=== PATIENT | female | born 1965 | race Caucasian/White ===

== ENCOUNTER 2017-08-10 16:15 | Inpatient (IN) | payer OTHER ==
[2017-08-26] MEDS ORDERED: Fentanyl 100 MCG/2 ML VIAL ONE ×2 (06:30→08:50)
[2017-08-26] MEDS ORDERED: Midazolam HCl 2 mg/2 ml Vial ONE (06:30)
[2017-08-26] MEDS ORDERED: Bupivacaine HCl 0.5%/Epinephrine 1:200,000/PF 30 ml Vial ONE (06:35)
[2017-08-26] MEDS ORDERED: Heparin 5,000 UNITS/ML VIAL ONE (06:38)
[2017-08-26] MEDS ORDERED: Propofol 200 MG/20 ML VIAL ONE (07:38)
[2017-08-26] MEDS ORDERED: Glycopyrrolate 0.2 MG/ML 5 ML SYRINGE ONE (07:38)
[2017-08-26] MEDS ORDERED: Ondansetron HCl/PF 4 MG/2 ML Vial ONE (07:38)
[2017-08-26] MEDS ORDERED: Lidocaine 2% PF 10 ML AMP (For Epidural Use) ONE (07:38)
[2017-08-26] MEDS ORDERED: Dexamethasone 20 MG/5 ML VIAL ONE (07:38)
[2017-08-26] MEDS ORDERED: ePHEDrine/0.9% NaCl/PF SYRINGE 50 mg/10 ml ONE (07:38)
[2017-08-26] MEDS ORDERED: PHENYLEPHRINE-NS 100 MCG/ML 10 ML SYRINGE ONE (07:38)
--- NOTE | 2017-08-26 07:46 | HP ---
CHIEF COMPLAINT: Morbid obesity. HISTORY: The patient is a 51-year-old female who has been overweight for many years and attempted m ultiple weight loss efforts without success. She is here for sleeve gastrectomy. PAST MEDICAL HISTORY: Hypertension, right ulnar neuropathy, depression. She has had a left eye per ipheral hemorrhage, plantar fasciitis. PAST SURGICAL HISTORY: None. ALLERGIES: No known drug allergies. SOCIAL HISTORY: She is a nonsmoker, no alcohol. She is . FAMILY HISTORY: Alcohol abuse, suicide, depression. PHYSICAL EXAMINATION: VITAL SIGNS: Height 5 foot 6, weight 276, body mass index 44.5. Blood pressure 103/66, pulse 83. GENERAL: Well-developed, well-nourished female in no apparent distress. HEENT: Unremarkable. LUNGS: Clear. HEART: Regular rate and rhythm. ABDOMEN: Soft, nondistended, nontender, good bowel sounds, no palpable masses or hernias. EXTREMITIES: Good pulses. No pedal edema. ASSESSMENT: Morbid obesity with comorbidities. PLAN: Laparoscopic sleeve gastrectomy. CONSENT: I have discussed the planned procedure as well as risk of bleeding, infection, injury to e sophagus, spleen, loops of bowel, need to open. She understands and gives informed consent.
[2017-08-26] MEDS ORDERED: Dextrose 50% Abboject 50 ML SYRINGE SLOW IVP PRN (08:29)
[2017-08-26] MEDS ORDERED: Promethazine HCl 25 MG/ML VIAL IM PRN ×2 (08:29→08:46)
[2017-08-26] MEDS ORDERED: Dextrose 5% in Water 1,000 ML IV PRN (08:29)
[2017-08-26] MEDS ORDERED: diphenhydrAMINE HCl 50 MG/ML 1 ML VIAL IVP PRN ×2 (08:29→09:30)
[2017-08-26] MEDS ORDERED: Hydrocodone-Acetamin 15 ML UDCUP PO PRN (08:29)
[2017-08-26] MEDS ORDERED: Ondansetron HCl/PF 4 MG/2 ML Vial IVP PRN ×3 (08:29→09:30)
[2017-08-26] MEDS ORDERED: Promethazine HCl 25 MG/ML VIAL SLOW IVP PRN (08:46)
--- NOTE | 2017-08-26 08:46 | OP ---
DATE OF PROCEDURE: 08/26/2017 PREOPERATIVE DIAGNOSIS: Morbid obesity. SURGEON: Indra Ayala M.D. PROCEDURE: Laparoscopic sleeve gastrectomy, intraoperative esophagogastroscopy, INDICATIONS: This is a 51-year-old female, morbidly obese, who has attempted multiple weight loss p rograms without success. FINDINGS: A 38 Mauritian bougie used. PROCEDURE IN DETAIL: After informed consent was obtained, the patient was taken to the operating ro om and given general endotracheal anesthesia. She was placed in the supine position. The abdomen w as prepped and draped in the usual fashion. Local anesthesia infiltrated subcutaneously and deep. A 12 mm incision was performed approximately 8 inches below the xiphoid slightly to the left. Veres s needle inserted. Drop test performed. Pneumoperitoneum was created to a volume of 2 liters of ca rbon dioxide. Utilizing a bladeless 12 mm trocar and 0 degree laparoscope direct visual entry in th e abdominal cavity was performed. Pneumoperitoneum was created to a pressure of 15 mmHg. The patie nt placed in steep reverse Trendelenburg position. Nathansen liver retractor inserted. Left lobe o f liver retracted superiorly. The pylorus identified. A 12 mm port placed on the right beneath it and two 12s placed left subcostal. The omentum was taken off the greater curvature 5 cm from the py lorus utilizing the LigaSure. Short gastrics divided with the LigaSure. Left crura defined with th e LigaSure. A 38-Mauritian bougie inserted directed into the antrum. The linear 60 mm green load stap ler used to divide the antrum to the bougie, gold load along the bougie, and a series of blues throu gh the angle of His. Intraoperative endoscopy was performed. The video endoscope inserted under di rect vision. The staple line inspected. There was no bleeding. Staple line then tested by inflati ng the new stomach with pressurized air under water. There was no air leak. Stomach decompressed. Scope removed. Remnant stomach removed from the abdomen through the left lateral port site. The f ascia closed with 0 Vicryl suture and a GraNee needle. Skin closed with interrupted 4-0 Rapide. De rmabond applied. The patient tolerated the procedure well and transferred to recovery in good condi tion. Sponge and needle count verified correct x2.
[2017-08-26] MEDS ORDERED: Fentanyl 20 MCG/ML 250 ML ONE (09:13)
[2017-08-26] MEDS ORDERED: Naloxone HCl 0.4 mg/ml Vial IV PRN (09:30)
[2017-08-26] MEDS ORDERED: diphenhydrAMINE HCl 50 MG/ML 1 ML VIAL IM PRN (09:30)
[2017-08-26] MEDS ORDERED: Zolpidem Tartrate 5 MG TAB PO PRN (09:30)
[2017-08-26] MEDS ORDERED: Communication Order-Pharmacy FS SCH (09:30)
[2017-08-26] MEDS ORDERED: Fentanyl 5000 MCG/250 ML CADD IVPB PRN (09:30)
[2017-08-26] MEDS ORDERED: diphenhydrAMINE HCl 25 MG CAP PO PRN (09:30)
[2017-08-26] MEDS: Pantoprazole 40 MG VIAL IVP SCH (10:15)
[2017-08-26 10:37] VITALS: BMI 41.8
[2017-08-26] MEDS: Ketorolac Tromethamine 30 MG/ML VIAL IVP SCH ×3 (11:29→23:09)
[2017-08-26] MEDS: D5 1/2 NS w/20 mEq KCL 1,000 ML IV SCH ×2 (11:29→18:40)
[2017-08-26] MEDS: Enoxaparin Sodium 40 MG/0.4 ML SYRINGE SC SCH (11:33)
[2017-08-26] MEDS ORDERED: Sodium Chloride 0.9% 500 ML IV SCH (13:45)
[2017-08-26] MEDS ORDERED: Morphine CADD 1 MG/ML CADD IV PRN (14:40)
[2017-08-27] MEDS: D5 1/2 NS w/20 mEq KCL 1,000 ML IV SCH ×2 (04:45→12:11)
[2017-08-27] MEDS: Ketorolac Tromethamine 30 MG/ML VIAL IVP SCH ×2 (05:08→12:19)
[2017-08-27 05:19] LABS: #Lymphocytes 1.3 thou/uL (1.20-3.40); #Monocytes 0.8 thou/uL (0.11-0.59); #Neutrophils 7.6 thou/uL (1.40-6.50); %Basophils 0.2 % (0.0-1.0); %Eosinophils 0.2 % (0.0-10.0); %Lymphocytes 12.9 % (21.0-51.0); %Monocytes 8.6 % (0.0-10.0); Mean Platelet Volume 8.6 fL (7.4-10.4); White Blood Cell (WBC) Count 9.7 thou/uL (4.8-10.8)
[2017-08-27 05:36] LABS: Anion Gap 11 mmol/L (10-20); BUN (Urea Nitrogen) 8 mg/dL (7.0-18.7); Calc. Creatinine Clearance 120 mL/min (70-130); Calcium 9.2 mg/dL (7.8-10.44); Carbon Dioxide 28 mmol/L (22-29); Chloride 106 mmol/L (98-107); Estimated GFR-MDRD 56
--- NOTE | 2017-08-27 08:12 | RAD ---
LIMITED UPPER GI WITH 15 ML GASTROGRAFIN: HISTORY: Status post bariatric surgery, vertical sleeve gastrectomy. FINDINGS/IMPRESSION: There is passage of contrast through the esophagus into the gastric remnant. A small hiatal hernia is seen. There is residual contrast noted in the esophagus. No contrast extravasation is seen. Ter tiary contractions are noted. POS: [facility]
[2017-08-27] MEDS ORDERED: Hydrocodone-Acetamin 15 ML UDCUP PO PRN (08:28)
[2017-08-27] MEDS: Enoxaparin Sodium 40 MG/0.4 ML SYRINGE SC SCH (08:51)
[2017-08-27] MEDS: Pantoprazole 40 MG VIAL IVP SCH (08:53)
[2017-08-27 12:23] VITALS: BP 110/71; TEMP 98.7
[2017-08-27] MEDS ORDERED: GASTROGRAFIN 30 ML BOT ONE (14:30)
--- NOTE | 2017-08-27 20:58 | DIS ---
DISCHARGE DIAGNOSIS: Morbid obesity. PROCEDURES DURING ADMISSION: Laparoscopic sleeve gastrectomy, intraoperative esophagogastroscopy, p ostoperative Gastrografin swallow. HOSPITAL COURSE: The patient was admitted, taken to the operating room where she underwent sleeve g astrectomy. Postoperatively, she is doing well. She is tolerating liquids well. She is discharged home in good condition on hydrocodone and Zofran. She will follow up with me in 2 weeks.
== END 2017-08-27 15:20 | disposition home or self-care (01) | DRG 621 ==
LOC: SURG A 08-26 06:11
PROVIDERS: ADMIT Surgery; ATTEND Surgery
PROC: 0DB64Z3 Excision of Stomach, Percutaneous Endoscopic Approach, Vertical (ICD-10-PCS; principal; 2017-08-26)
PROC: 0DJ68ZZ Inspection of Stomach, Via Natural or Artificial Opening Endoscopic (ICD-10-PCS; 2017-08-26)
DX: E66.01 Morbid (severe) obesity due to excess calories (principal); I10 Essential (primary) hypertension; Z68.41 Body mass index [BMI] 40.0-44.9, adult; F41.9 Anxiety disorder, unspecified; F32.9 Major depressive disorder, single episode, unspecified
CPT/HCPCS: 36415; 74241; 80048; 85025; 88307; 88312; 94760; C9113; J0670; J1100; J1200; J1644; J1885; J2001; J2250; J2270; J2274; J2405; J2704; J3010

== ENCOUNTER 2017-09-12 00:26 | Inpatient (IN) | payer OTHER ==
[2017-09-12 01:03] LABS: #Eosinphils 0.1 thou/uL (0.0-0.7); #Lymphocytes 1.9 thou/uL (1.20-3.40); #Monocytes 0.8 thou/uL (0.11-0.59); #Neutrophils 3.4 thou/uL (1.40-6.50); %Basophils 0.8 % (0.0-1.0); %Eosinophils 2.3 % (0.0-10.0); %Lymphocytes 29.6 % (21.0-51.0); %Monocytes 13.3 % (0.0-10.0); Mean Platelet Volume 10.1 fL (7.4-10.4); Red Blood Cell (RBC) Count 5.04 mill/uL (4.20-5.40); White Blood Cell (WBC) Count 6.3 thou/uL (4.8-10.8)
[2017-09-12] MEDS ORDERED: Ondansetron HCl/PF 4 MG/2 ML Vial ONE (01:11)
[2017-09-12 01:22] LABS: Lactic Acid - Sepsis 1.2 mmol/L (0.5-2.2)
[2017-09-12 01:28] LABS: ALT (SGPT) 17 U/L (8-55); AST (SGOT) 23 U/L (5-34); Alkaline Phosphatase 57 U/L (40-150); Anion Gap 14 mmol/L (10-20); BUN (Urea Nitrogen) 34 mg/dL (7.0-18.7); Calc. Creatinine Clearance 0 mL/min (70-130); Calcium 10.1 mg/dL (7.8-10.44); Carbon Dioxide 28 mmol/L (22-29); Chloride 98 mmol/L (98-107); Estimated GFR-MDRD 27; Globulin 3.4 g/dL (2.4-3.5); Lipase 72 U/L (8-78); Protein, Total 7.7 g/dL (6.0-8.3)
[2017-09-12] MEDS ORDERED: Potassium Chloride 20 MEQ TAB ONE (02:20)
[2017-09-12 03:11] LABS: Magnesium 2.3 mg/dL (1.6-2.6); Phosphorus 4.3 mg/dL (2.3-4.7)
[2017-09-12] MEDS ORDERED: Ondansetron HCl/PF 4 MG/2 ML Vial IVP PRN ×2 (03:48→04:14)
[2017-09-12] MEDS ORDERED: Ondansetron ODT 4 MG TAB SL PRN (03:48)
[2017-09-12 03:58] VITALS: BMI 38.7
[2017-09-12] MEDS ORDERED: NS 0.9% w/ 20 MEQ KCL 1,000 ML IV SCH (04:00)
[2017-09-12] MEDS ORDERED: Ondansetron ODT 4 MG TAB PO PRN (04:14)
[2017-09-12] MEDS ORDERED: Acetaminophen 325 MG TAB PO PRN (04:14)
[2017-09-12] MEDS ORDERED: Hydrocerin (Eucerin) Cream 120 gm Jar TOP PRN (04:16)
[2017-09-12] MEDS ORDERED: Loratadine 10 MG TAB PO PRN (04:17)
[2017-09-12] MEDS ORDERED: Calcium Carbonate 500 MG ChewTAB PO PRN (04:17)
--- NOTE | 2017-09-12 05:00 | HP ---
DATE OF ADMISSION: 09/12/2017 PRIMARY CARE PHYSICIAN: Sharad Brown M.D. CHIEF COMPLAINT: Abdominal discomfort. PRIMARY GENERAL SURGEON: Dr. Ayala. HISTORY OF PRESENT ILLNESS: Patient is a 51-year-old female with morbid obesity with recent laparos copic sleeve gastrectomy presented to the emergency room with above complaints. Postsurgery, the patient felt fine until 4 days ago when she started having nausea with some abdomin al discomfort that got worse over the last 2 days. She denies any vomiting. Taking liquid hydrocod one was making her nausea worse. For this reason, she discontinued taking [place] over the last 1-2 d ays. The abdominal pain was generalized, mainly over the incision site. She also felt bloated. Sh e denies any diarrhea, constipation, hematemesis, melena, or hematochezia. No fevers or chills repo rted. She denies any recent immobilization, shortness of breath. She has been ambulating and is st ill using incentive spirometry regularly. In the emergency room, her initial vitals signs showed temperature 97.9 with respirations of 18, pul se rate of 66, blood pressure of 91/61 with O2 saturation 100% on room air. Her labs were consisten t with acute kidney injury with creatinine 1.99 with BUN 34, and potassium of 3.1. She was started on IV fluids. Her EKG showed sinus rhythm without significant ST-T wave changes. She also received potassium chloride 40 mEq p.o. along with morphine and Zofran in the emergency room. PAST MEDICAL HISTORY: 1. Obesity with a BMI of 38.8. 2. Hypertension. 3. Depression. 4. Right ulnar neuropathy. PAST SURGICAL HISTORY: Recent sleeve gastrectomy. ALLERGIES: Patient denies any drug allergies. CURRENT HOME MEDICATIONS: The patient takes Benicar HCT 20/12.5 daily. She is unable to recall oth er vitamins. FAMILY HISTORY: Mother with depression. Heart disease runs in her family. SOCIAL HISTORY: She is a teacher in elementary school. She denies any history of smoking, alcohol, or drug use. She is . REVIEW OF SYSTEMS: The following complete review of systems was negative, unless otherwise mentione d in the HPI or below: Constitutional: Weight loss or gain, ability to conduct usual activities. Skin: Rash, itching. Eyes: Double vision, pain. ENT/Mouth: Nose bleeding, neck stiffness, pain, tenderness. Cardiovascular: Palpitations, dyspnea on exertion, orthopnea. Respiratory: Shortnes s of breath, wheezing, cough, hemoptysis, fever or night sweats. Gastrointestinal: Poor appetite, abdominal pain, heartburn, nausea, vomiting, constipation, or diarrhea. Genitourinary: Urgency, fr equency, dysuria, nocturia. Musculoskeletal: Pain, swelling. Neurologic/Psychiatric: Anxiety, de pression. Allergy/Immunologic: Skin rash, bleeding tendency. PHYSICAL EXAMINATION: VITAL SIGNS: As discussed above. GENERAL: A 51-year-old female in mild distress due to abdominal discomfort. HEENT: Head: Atraumatic, normocephalic. Sclerae are anicteric. Moist mucous membranes. No oral lesion. NECK: Supple, no JVD, no carotid bruit. LUNGS: Clear to auscultation bilaterally. HEART: S1, S2 present. Regular rate and rhythm. No murmurs, rubs, or gallops. ABDOMEN: Soft, mild generalized tenderness. Incisions appear well healed. No costovertebral angle tenderness. No rebound or guarding. EXTREMITIES: No edema or calf tenderness. NEUROLOGIC: Grossly nonfocal, moves all four extremities. PSYCHIATRY: Alert, awake, oriented x3. SKIN: Warm and dry. LYMPH NODES: No palpable lymph nodes in the neck. PERIPHERAL VASCULAR: Radial pulses palpable bilaterally. MUSCULOSKELETAL: No joint swelling or tenderness. LABORATORY FINDINGS: As discussed above. Lactic acid, magnesium, phosphorus in normal range. Sodi um was 137. LFTs in normal range. CBC showed WBC 6.3 with hemoglobin 14.5. Chest x-ray by my review was negative for infiltrate. EKG as discussed above. IMPRESSION: 1. Acute kidney injury secondary to prerenal etiology. Patient has been persistently nauseous over the last 4-5 days. She also takes Benicar HCT on a daily basis. She will be started on IV fluids. She denies any obstructive urinary symptoms. We will recheck labs after 24 hours. We will consid er renal ultrasound if renal function does not improve. Benicar HCT will be on hold. 2. Hypotension, probably secondary to #1. We will continue IV fluids. 3. Abdominal discomfort with recent sleeve gastrectomy. The patient feels bloated with some abdomi nal distention. We will consult General Surgery, Dr. Ayala. 4. Obesity with a BMI 38.8, status post recent sleeve gastrectomy. 5. Chronic kidney disease stage 2. 6. Hypokalemia, probably secondary to poor oral intake. 7. Hypertension. Plan as discussed above. Plan of care was discussed with the patient. She stated understanding. The patient will require at least 2 days for stabilization.
[2017-09-12] MEDS: Sodium Chloride 0.9% 1,000 ML IV SCH ×3 (05:04→16:46)
[2017-09-12] MEDS ORDERED: Morphine Sulfate 2 MG/ML SYRINGE SLOW IVP PRN (08:01)
--- NOTE | 2017-09-12 08:22 | RAD ---
SINGLE VIEW OF CHEST: Date: 09/12/17 COMPARISON: 04/05/12. HISTORY: Bariatric surgery 16 days ago with abdominal pain and cramping. FINDINGS: Single view of the chest shows a normal sized cardiomediastinal silhouette. There is no evidence of consolidation, mass, or pleural effusion. The bones are unremarkable. IMPRESSION: No evidence of acute cardiopulmonary disease. POS: [facility]
[2017-09-12] MEDS ORDERED: Pantoprazole 40 MG VIAL IVP SCH (09:00)
[2017-09-12] MEDS ORDERED: FLU VACC QS2017-18 36 mo. & older 0.5 ML SYRINGE IM ONE (09:00)
--- NOTE | 2017-09-12 13:38 | PDOC.PN ---
- Subjective Encounter Start Date: 09/12/17 Encounter Start Time: 10:45 Subjective: abdominal pain is better, is mostly at the incision sites -: no nausea, she feels like her abd is distented and feels heavy in lower [place] -: admits to not hydrating well for 36hrs, she would come home & sleep off - Objective Resuscitation Status: Resuscitation Status FULL:Full Resuscitation MAR Reviewed: Yes Vital Signs & Weight: Vital Signs (12 hours) Temp Pulse Resp BP BP BP Pulse Ox 09/12/17 11:02 97.6 F 74 16 135/71 108/75 100/58 L 97 09/12/17 08:00 98.2 F 73 16 100 09/12/17 07:32 98.2 F 73 16 113/66 100 09/12/17 04:49 97.7 F 79 20 09/12/17 04:19 99 09/12/17 03:58 97.7 F 79 20 91/55 L 99 Weight Weight 240 lb 6 oz I&O: 09/11/17 09/12/17 09/13/17 06:59 06:59 06:59 Intake Total 525 Balance 525 Result Diagrams: 09/12/17 00:45 09/12/17 00:45 Phys Exam - Physical Examination HEENT: PERRLA, moist MMs Neck: no JVD, supple Respiratory: no wheezing, no rales Cardiovascular: RRR, no significant murmur Gastrointestinal: soft, positive bowel sounds Musculoskeletal: no edema, pulses present Neurological: non-focal, moves all 4 limbs Dx/Plan (1) Abdominal pain Code(s): R10.9 - UNSPECIFIED ABDOMINAL PAIN Status: Acute (2) Nausea & vomiting Code(s): R11.2 - NAUSEA WITH VOMITING, UNSPECIFIED Status: Resolved (3) Obesity (BMI 30-39.9) Code(s): E66.9 - OBESITY, UNSPECIFIED Status: Chronic (4) HTN (hypertension) Code(s): I10 - ESSENTIAL (PRIMARY) HYPERTENSION Status: Chronic Qualifiers: Hypertension type: essential hypertension Qualified Code(s): I10 - Essential (primary) hypertension (5) Depression Code(s): F32.9 - MAJOR DEPRESSIVE DISORDER, SINGLE EPISODE, UNSPECIFIED Status : Chronic (6) MI (acute kidney injury) Code(s): N17.9 - ACUTE KIDNEY FAILURE, UNSPECIFIED Status: Acute - Plan moderate dehydration is resolving -: gentle iv fluids -: has evaluated patient on floor, recent gastric sleeve -: replace potassium -: dc plan in am if stable * .
--- NOTE | 2017-09-12 14:50 | PRG ---
DATE OF SERVICE: 09/12/2017 SUBJECTIVE: Mrs. Reyes is a patient who is postoperative day #20, status post laparoscopic sleev e gastrectomy. She has done well since discharge from the hospital. Currently, she was admitted today with complaint of abdominal wall pain. She is, however, tolerant of oral intake and having bowel movements. She denies any fevers or chills. This morning she reports of pain at 4-5/10. The pain is not exacerbated with activity. She denies any fevers or chills. OBJECTIVE: VITAL SIGNS: Includes blood pressure 100/58, pulse 74, respirations 16, temperature is 98.2 degrees Fahrenheit, oxygen saturation is 100% on room air. HEENT EXAMINATION: Reveals normocephalic and atraumatic. HEART: Reveals regular rate and rhythm. No murmurs or gallops auscultated. CHEST: Clear to auscultation bilaterally. Breathing is regular and unlabored. ABDOMEN: Soft and obese. All incisional scars intact. Clean and dry. There is no evidence of abd ominal wall herniation or subcutaneous hematoma hours. The patient, however, did extubate some subj ective pain with percussion of the abdomen due to sudden movements of redundant subcutaneous tissue s. She clearly has no gross peritoneal signs on examination. LABORATORY DATA: Today includes a normal CBC with 6300 white blood cells, hemoglobin 14.5, hematocr it is 44.0, platelet count 176,000. Metabolic profile: Sodium 137, potassium is 3.1, chloride is 9 8, bicarbonate 28, BUN 34, creatinine is 1.99, glucose 103, magnesium 2.3, phosphorus is 4.3. IMPRESSION: 1. Postop day #20 status post laparoscopic sleeve gastrectomy. 2. Acute kidney injury secondary to dehydration. RECOMMENDATION: 1. Continue with current medical management including IV hydration and oral intake as tolerated. 2. Provide patient with abdominal binder for comfort and encourage ambulation without any activity restrictions. 3. There is no acute surgical indication for this patient at this time, however.
[2017-09-12] MEDS: Potassium Chloride 20 MEQ TAB PO SCH (16:45)
[2017-09-13] MEDS: Sodium Chloride 0.9% 1,000 ML IV SCH ×2 (02:20→05:43)
[2017-09-13 06:36] LABS: Anion Gap 12 mmol/L (10-20); BUN (Urea Nitrogen) 16 mg/dL (7.0-18.7); Calc. Creatinine Clearance 158 mL/min (70-130); Calcium 8.8 mg/dL (7.8-10.44); Carbon Dioxide 24 mmol/L (22-29); Chloride 108 mmol/L (98-107); Estimated GFR-MDRD 83
[2017-09-13] MEDS: Potassium Chloride 20 MEQ TAB PO SCH (08:22)
[2017-09-13 08:28] VITALS: TEMP 98.4
--- NOTE | 2017-09-13 11:33 | PDOC.PN ---
- Subjective Encounter Start Date: 09/13/17 Encounter Start Time: 07:15 Subjective: feels better with the binder on -: abd pain is better, no nausea - Objective Resuscitation Status: Resuscitation Status FULL:Full Resuscitation MAR Reviewed: Yes Vital Signs & Weight: Vital Signs (12 hours) Temp Pulse Resp BP Pulse Ox 09/13/17 08:00 98.4 F 71 16 96 09/13/17 07:40 98.4 F 71 16 110/71 96 09/13/17 00:00 98.3 F 72 18 98/64 95 Weight Admit Weight 240 lb Weight 240 lb I&O: 09/12/17 09/13/17 09/14/17 06:59 06:59 06:59 Intake Total 525 1950 Balance 525 1950 Result Diagrams: 09/12/17 00:45 09/13/17 04:49 Phys Exam - Physical Examination HEENT: PERRLA, moist MMs Neck: no JVD, supple Respiratory: no wheezing, no rales Cardiovascular: RRR, no significant murmur Gastrointestinal: soft, non-tender, no distention, positive bowel sounds Musculoskeletal: no edema, pulses present Neurological: non-focal, moves all 4 limbs Psychiatric: A&O x 3 Dx/Plan (1) Abdominal pain Code(s): R10.9 - UNSPECIFIED ABDOMINAL PAIN Status: Acute (2) Nausea & vomiting Code(s): R11.2 - NAUSEA WITH VOMITING, UNSPECIFIED Status: Resolved (3) Obesity (BMI 30-39.9) Code(s): E66.9 - OBESITY, UNSPECIFIED Status: Chronic (4) HTN (hypertension) Code(s): I10 - ESSENTIAL (PRIMARY) HYPERTENSION Status: Chronic Qualifiers: Hypertension type: essential hypertension Qualified Code(s): I10 - Essential (primary) hypertension (5) Depression Code(s): F32.9 - MAJOR DEPRESSIVE DISORDER, SINGLE EPISODE, UNSPECIFIED Status : Chronic (6) MI (acute kidney injury) Code(s): N17.9 - ACUTE KIDNEY FAILURE, UNSPECIFIED Status: Resolved - Plan mi and dehydration is resolved -: dc pt home -: counselled to follow bariatric diet with freq hydration -: has f/u appt with in am * .
[2017-09-13 11:48] VITALS: BP 121/84
--- NOTE | 2017-09-13 21:30 | DIS ---
DATE OF ADMISSION: 09/12/2017 DATE OF DISCHARGE: 09/13/2017 DISCHARGE DISPOSITION: To home. PRIMARY DISCHARGE DIAGNOSES: Abdominal pain with nausea, vomiting and dehydration, resolved; recent history of gastric sleeve surgery. SECONDARY DISCHARGE DIAGNOSES: Acute kidney injury due to dehydration, hypertension, depression, ob esity. PROCEDURES DONE DURING HOSPITALIZATION: Chest x-ray done showed no acute infiltrate. Initial BUN a nd creatinine were 34 and 1.9. Discharge BUN and creatinine were 16 and 0.7. Electrolytes were sta ble on the day of discharge. Lipase was 72. INPATIENT CONSULTS: Dr. Arceo was covering for Dr. Ayala for General Surgery. DISCHARGE PLAN: Patient to follow up with Dr. Ayala tomorrow. BRIEF COURSE DURING HOSPITALIZATION: The patient initially came in with complaints of abdominal miladis n. She had also not been hydrating herself well and was sleeping a lot at home. She was found to h ave had acute kidney injury with dehydration and abdominal pain. The patient was evaluated by Dr. Adry sommers and was found to be stable. The patient has been counseled regarding bariatric diet and freque nt hydration. She is hemodynamically stable, her abdominal pain has resolved, she is eating prior t o discharge. Please see a [id number] documentation on [facility] for the day of discharge. Please note patient has a followup appointment tomorrow with Dr. Ayala.
== END 2017-09-13 12:02 | disposition home or self-care (01) | DRG 684 ==
LOC: ERS 00:26 → T4-A 03:30
PROVIDERS: ADMIT Internal Medicine; ATTEND Internal Medicine
DX: N17.9 Acute kidney failure, unspecified (principal); I95.9 Hypotension, unspecified; Z98.84 Bariatric surgery status; E66.01 Morbid (severe) obesity due to excess calories; Z68.38 Body mass index [BMI] 38.0-38.9, adult; E87.6 Hypokalemia; I12.9 Hypertensive chronic kidney disease with stage 1 through stage 4 chronic kidney disease, or unspecified chronic kidney disease; N18.2 Chronic kidney disease, stage 2 (mild); E86.0 Dehydration; F32.9 Major depressive disorder, single episode, unspecified; Z23 Encounter for immunization
CPT/HCPCS: 36415; 71010; 80048; 80053; 83605; 83690; 83735; 84100; 85025; 90471; 90682; 93005; 96361; 96374; 96375; A4216; C9113; G0008; J2270; J2405; Q2036

== ENCOUNTER 2018-04-05 17:37 | Emergency (ER) | payer OTHER ==
[2018-04-05 18:19] LABS: #Eosinphils 0.2 thou/uL (0.0-0.7); #Monocytes 0.5 thou/uL (0.11-0.59); #Neutrophils 4.8 thou/uL (1.40-6.50); %Basophils 0.1 % (0.0-1.0); %Eosinophils 2.2 % (0.0-10.0); %Monocytes 6.8 % (0.0-10.0); %Neutrophils 63.9 % (42.0-75.0); Hemoglobin 13.5 g/dL (12.0-16.0); Mean Corpuscular HGB CONC 33.7 g/dL (32.0-36.0); Mean Corpuscular Hemoglobin 29.5 pg (27.0-31.0); Mean Corpuscular Volume 87.6 fl (81.0-99.0); Mean Platelet Volume 8.4 fL (7.4-10.4); Platelet Count 197 thou/uL (130-400); RBC Distribution Width 11.6 % (11.5-14.5); Red Blood Cell (RBC) Count 4.57 mill/uL (4.20-5.40); White Blood Cell (WBC) Count 7.5 thou/uL (4.8-10.8)
[2018-04-05] MEDS ORDERED: Ondansetron ODT 4 MG TAB ONE (18:39)
[2018-04-05 18:42] LABS: ALT (SGPT) 10 U/L (8-55); AST (SGOT) 14 U/L (5-34); Albumin 3.9 g/dL (3.5-5.0); Alkaline Phosphatase 89 U/L (40-150); Anion Gap 8 mmol/L (10-20); BUN (Urea Nitrogen) 13 mg/dL (7.0-18.7); Bilirubin, Total 0.6 mg/dL (0.2-1.2); Calc. Creatinine Clearance 0 mL/min (70-130); Calcium 9.2 mg/dL (7.8-10.44); Carbon Dioxide 27 mmol/L (22-29); Chloride 109 mmol/L (98-107); Estimated GFR-MDRD 83; Globulin 2.9 g/dL (2.4-3.5); Glucose 81 mg/dL (70-105); Potassium 3.4 mmol/L (3.5-5.1); Protein, Total 6.8 g/dL (6.0-8.3); Sodium 141 mmol/L (136-145)
[2018-04-05 19:33] LABS: CK (CPK) 99 U/L (29-168); Lipase 15 U/L (8-78)
[2018-04-05 19:41] LABS: CKMB 1.7 ng/mL (0-6.6); Troponin I Less than 0.010 ng/mL (< 0.028)
--- NOTE | 2018-04-05 20:25 | CT ---
CT BRAIN PERFORMED WITHOUT CONTRAST ENHANCEMENT: HISTORY: Headache x3 days. FINDINGS: The ventricular and cisternal system is within normal limits. There are no signs of intracerebral he morrhage or extraaxial fluid collections. The mastoid air cells and visualized sinuses are clear. IMPRESSION: No acute intracranial abnormalities. POS: [facility]
[2018-04-05 21:21] LABS: Bilirubin Negative (Negative); Blood, Urine Negative (Negative); Clarity CLEAR (Clear); Glucose, Urine (Dipstick) Negative (Negative); Leukocyte Negative (Negative); Nitrite Negative (Negative); Protein, Urine (Dipstick) Negative (Neg-Trace); Specific Gravity, Urine 1.006 (1.002-1.036); Urobilinogen 0.2 mg/dL (0.2-1.0); pH, Urine 7.5 (5.0-9.0)
== END 2018-04-05 22:00 | disposition home or self-care (01) ==
LOC: ERS 17:37
DX: E86.0 Dehydration (principal); I10 Essential (primary) hypertension; F32.9 Major depressive disorder, single episode, unspecified; Z79.899 Other long term (current) drug therapy
CPT/HCPCS: 36415; 70450; 80053; 81003; 82553; 83690; 84484; 85025; 96360; 96372; Q0162

== ENCOUNTER 2018-06-21 08:47 | Outpatient (CLI) | payer OTHER | END 2018-06-21 08:48 | disposition home or self-care (01) | LOC: BICMAMMO 08:47 | PROVIDERS: ATTEND Family Medicine | DX: Z13.820 Encounter for screening for osteoporosis (principal); Z78.0 Asymptomatic menopausal state | CPT/HCPCS: 77080 ==

== ENCOUNTER 2018-07-11 11:49 | Emergency (ER) | payer OTHER ==
[2018-07-11 12:15] LABS: #Eosinphils 0.1 thou/uL (0.0-0.7); #Lymphocytes 1.5 thou/uL (1.20-3.40); #Monocytes 0.4 thou/uL (0.11-0.59); #Neutrophils 2.6 thou/uL (1.40-6.50); %Basophils 0.2 % (0.0-1.0); %Eosinophils 2.2 % (0.0-10.0); %Lymphocytes 33.7 % (21.0-51.0); %Monocytes 7.7 % (0.0-10.0); %Neutrophils 56.2 % (42.0-75.0); Hemoglobin 13.1 g/dL (12.0-16.0); Mean Corpuscular HGB CONC 33.1 g/dL (32.0-36.0); Mean Corpuscular Hemoglobin 28.7 pg (27.0-31.0); Mean Corpuscular Volume 86.8 fL (78.0-98.0); Platelet Count 165 thou/uL (130-400); RBC Distribution Width 11.6 % (11.5-14.5); Red Blood Cell (RBC) Count 4.56 mill/uL (4.20-5.40); White Blood Cell (WBC) Count 4.6 thou/uL (4.8-10.8)
[2018-07-11 12:36] LABS: ALT (SGPT) 7 U/L (8-55); AST (SGOT) 13 U/L (5-34); Albumin 3.9 g/dL (3.5-5.0); Alkaline Phosphatase 60 U/L (40-150); Anion Gap 12 mmol/L (10-20); BUN (Urea Nitrogen) 13 mg/dL (7.0-18.7); Bilirubin, Total 0.9 mg/dL (0.2-1.2); Calc. Creatinine Clearance 0 mL/min (70-130); Calcium 9.2 mg/dL (7.8-10.44); Carbon Dioxide 26 mmol/L (22-29); Chloride 101 mmol/L (98-107); Estimated GFR-MDRD 78; Globulin 2.7 g/dL (2.4-3.5); Glucose 136 mg/dL (70-105); Potassium 3.7 mmol/L (3.5-5.1); Protein, Total 6.6 g/dL (6.0-8.3); Sodium 135 mmol/L (136-145)
[2018-07-11] MEDS ORDERED: Ketorolac Tromethamine 30 MG/ML VIAL ONE (12:56)
[2018-07-11] MEDS ORDERED: Acetaminophen 325 MG TAB ONE (13:26)
[2018-07-11] MEDS ORDERED: diphenhydrAMINE 50 MG/ML VIAL ONE (14:26)
[2018-07-11] MEDS ORDERED: Magnesium Sulfate 2 GM in Sodium Chloride 0.9% 100 ML IVPB SCH (14:45)
== END 2018-07-11 17:05 | disposition home or self-care (01) ==
LOC: ERS 11:49
DX: E86.0 Dehydration (principal); R51 Headache; I10 Essential (primary) hypertension; F32.9 Major depressive disorder, single episode, unspecified; Z79.899 Other long term (current) drug therapy
CPT/HCPCS: 80053; 85025; 93005; 96361; 96365; 96375; J1200; J1885; J3475; J7050

== ENCOUNTER 2019-04-20 12:41 | Emergency (ER) | payer OTHER ==
--- NOTE | 2019-04-20 13:51 | RAD ---
XR Chest 1 View Portable HISTORY: Syncope COMPARISON: 08/30/2017 FINDINGS: The heart size is normal. The lungs are well expanded without focal areas of consolidation, pneumothorax or pleural effusions. IMPRESSION: No radiographic evidence of acute cardiopulmonary process.
[2019-04-20 13:55] LABS: #Eosinphils 0.1 thou/uL (0.0-0.7); #Monocytes 0.4 thou/uL (0.11-0.59); #Neutrophils 2.8 thou/uL (1.40-6.50); %Basophils 0.1 % (0.0-1.0); %Eosinophils 2.1 % (0.0-10.0); %Lymphocytes 24.3 % (21.0-51.0); %Monocytes 9.7 % (0.0-10.0); %Neutrophils 63.8 % (42.0-75.0); Hemoglobin 13.7 g/dL (12.0-16.0); Mean Corpuscular HGB CONC 34.2 g/dL (32.0-36.0); Mean Corpuscular Hemoglobin 29.4 pg (27.0-31.0); Mean Corpuscular Volume 85.9 fL (78.0-98.0); Mean Platelet Volume 8.9 fL (7.4-10.4); Platelet Count 183 thou/uL (130-400); RBC Distribution Width 11.6 % (11.5-14.5); Red Blood Cell (RBC) Count 4.67 mill/uL (4.20-5.40); White Blood Cell (WBC) Count 4.3 thou/uL (4.8-10.8)
[2019-04-20 14:06] LABS: ALT (SGPT) 29 U/L (8-55); AST (SGOT) 47 U/L (5-34); Albumin 4.2 g/dL (3.5-5.0); Alkaline Phosphatase 63 U/L (40-150); Anion Gap 10 mmol/L (10-20); BUN (Urea Nitrogen) 10 mg/dL (9.8-20.1); Bilirubin, Total 0.8 mg/dL (0.2-1.2); CK (CPK) 118 U/L (29-168); Calc. Creatinine Clearance 0 mL/min (70-130); Calcium 9.3 mg/dL (7.8-10.44); Carbon Dioxide 30 mmol/L (22-29); Chloride 100 mmol/L (98-107); Estimated GFR-MDRD 80; Globulin 2.6 g/dL (2.4-3.5); Glucose 91 mg/dL (70-105); Lipase 25 U/L (8-78); Potassium 3.6 mmol/L (3.5-5.1); Protein, Total 6.8 g/dL (6.0-8.3); Sodium 136 mmol/L (136-145)
[2019-04-20 14:44] LABS: Bilirubin Negative (Negative); Blood, Urine Negative (Negative); Clarity TURBID (Clear); Glucose, Urine (Dipstick) Negative (Negative); Leukocyte Negative (Negative); Nitrite Negative (Negative); Protein, Urine (Dipstick) Negative (Neg-Trace); Specific Gravity, Urine 1.007 (1.002-1.036); Urobilinogen 0.2 mg/dL (0.2-1.0)
== END 2019-04-20 15:46 | disposition home or self-care (01) ==
LOC: ERS 12:41
DX: E86.0 Dehydration (principal); I10 Essential (primary) hypertension; F32.9 Major depressive disorder, single episode, unspecified; Z79.899 Other long term (current) drug therapy
CPT/HCPCS: 71045; 80053; 81003; 82550; 83690; 83880; 84484; 85025; 93005; 96360

== ENCOUNTER 2019-06-28 15:15 | Outpatient (CLI) | payer OTHER ==
--- NOTE | 2019-06-28 16:16 | MMO ---
Bilateral MAMMO Bilat Screen [facility]. CLINICAL HISTORY: Patient is 53 years old and is seen for screening. The patient has no family history of breast cancer. The patient has no personal history of cancer. VIEWS: The views performed were: bilateral craniocaudal with tomosynthesis and bilateral mediolateral oblique with tomosynthesis. FILMS COMPARED: The present examination has been compared to prior imaging studies performed at [facility] on 05/23/2008, 12/07/2009, 06/24/2013 and 06/27/2014. MAMMOGRAM FINDINGS: The breasts are almost entirely fat. There are no suspicious masses, suspicious calcifications, or new areas of architectural distortion. IMPRESSION: THERE IS NO MAMMOGRAPHIC EVIDENCE OF MALIGNANCY. A ROUTINE FOLLOW-UP MAMMOGRAM IN 1 YEAR IS RECOMMENDED. THE RESULTS OF THIS EXAM WERE SENT TO THE PATIENT. ACR BI-RADS Category 1 - Negative MAMMOGRAPHY NOTE: 1. A negative mammogram report should not delay a biopsy if a dominant of clinically suspicious mass is present. 2. Approximately 10% to 15% of breast cancers are not detected by mammography. 3. Adenosis and dense breasts may obscure an underlying neoplasm. Reported by: BENNETT ARAYA MD Electonically Signed: [id number]
== END 2019-06-28 15:16 | disposition home or self-care (01) ==
LOC: BICMAMMO 15:15
PROVIDERS: ATTEND Family Medicine
DX: Z12.31 Encounter for screening mammogram for malignant neoplasm of breast (principal)
CPT/HCPCS: 77063; 77067

== ENCOUNTER 2019-09-03 13:01 | Emergency (ER) | payer OTHER ==
[2019-09-03 15:33] LABS: #Eosinphils 0.3 thou/uL (0.0-0.7); #Lymphocytes 1.2 thou/uL (1.20-3.40); #Monocytes 0.4 thou/uL (0.11-0.59); #Neutrophils 4.6 thou/uL (1.40-6.50); %Basophils 0.2 % (0.0-1.0); %Eosinophils 4.3 % (0.0-10.0); %Monocytes 5.8 % (0.0-10.0); %Neutrophils 70.8 % (42.0-75.0); Hemoglobin 13.7 g/dL (12.0-16.0); Mean Corpuscular HGB CONC 34.8 g/dL (32.0-36.0); Mean Corpuscular Hemoglobin 30.1 pg (27.0-31.0); Mean Corpuscular Volume 86.4 fL (78.0-98.0); Mean Platelet Volume 8.4 fL (7.4-10.4); Platelet Count 170 thou/uL (130-400); RBC Distribution Width 11.3 % (11.5-14.5); Red Blood Cell (RBC) Count 4.54 mill/uL (4.20-5.40); White Blood Cell (WBC) Count 6.6 thou/uL (4.8-10.8)
[2019-09-03 15:55] LABS: ALT (SGPT) 10 U/L (8-55); AST (SGOT) 15 U/L (5-34); Albumin 3.8 g/dL (3.5-5.0); Alkaline Phosphatase 65 U/L (40-110); Anion Gap 11 mmol/L (10-20); BUN (Urea Nitrogen) 11 mg/dL (9.8-20.1); Bilirubin, Total 0.9 mg/dL (0.2-1.2); Calc. Creatinine Clearance 0 mL/min (70-130); Calcium 8.9 mg/dL (7.8-10.44); Carbon Dioxide 27 mmol/L (22-29); Chloride 102 mmol/L (98-107); Estimated GFR-MDRD 78; Globulin 2.7 g/dL (2.4-3.5); Glucose 143 mg/dL (70-105); Potassium 3.6 mmol/L (3.5-5.1); Protein, Total 6.5 g/dL (6.0-8.3); Sodium 136 mmol/L (136-145)
[2019-09-03] MEDS ORDERED: Metoclopramide HCl 10 MG/2 ML VIAL ONE (16:05)
[2019-09-03] MEDS ORDERED: Ketorolac Tromethamine 30 MG/ML VIAL ONE (16:05)
[2019-09-03] MEDS ORDERED: diphenhydrAMINE 50 MG/ML VIAL ONE (16:05)
[2019-09-03] MEDS ORDERED: Acetaminophen 500 MG TAB ONE (16:35)
[2019-09-03] MEDS ORDERED: Magnesium 2 GM/50 ML BAG (IN WATER) ONE (18:02)
== END 2019-09-03 19:15 | disposition home or self-care (01) ==
LOC: ERS 13:01
DX: E86.0 Dehydration (principal); R51 Headache; R19.7 Diarrhea, unspecified; I10 Essential (primary) hypertension; F32.9 Major depressive disorder, single episode, unspecified
CPT/HCPCS: 36415; 80053; 83690; 85025; 96361; 96365; 96375; J1200; J1885; J2765; J3475

== ENCOUNTER 2021-09-09 17:00 | Outpatient (CLI) | payer BC | END 2021-09-09 17:01 | disposition home or self-care (01) | LOC: SLEEPLAB 17:00 | PROVIDERS: ATTEND Family Medicine | DX: R53.83 Other fatigue (principal); G47.33 Obstructive sleep apnea (adult) (pediatric); R09.89 Other specified symptoms and signs involving the circulatory and respiratory systems; G31.84 Mild cognitive impairment of uncertain or unknown etiology; R51.9 Headache, unspecified; R06.83 Snoring; F41.9 Anxiety disorder, unspecified; F32.9 Major depressive disorder, single episode, unspecified; G47.00 Insomnia, unspecified; E66.9 Obesity, unspecified; Z68.33 Body mass index [BMI] 33.0-33.9, adult | CPT/HCPCS: 95806 ==

== ENCOUNTER 2022-05-21 09:56 | Outpatient (CLI) | payer BC | END 2022-05-21 09:57 | disposition home or self-care (01) | LOC: BICMAMMO 09:56 | PROVIDERS: ATTEND Family Medicine | DX: Z12.31 Encounter for screening mammogram for malignant neoplasm of breast (principal); Z80.3 Family history of malignant neoplasm of breast | CPT/HCPCS: 77063; 77067 ==

== ENCOUNTER 2023-07-01 15:36 | Outpatient (CLI) | payer BC | END 2023-07-01 15:37 | disposition home or self-care (01) | LOC: BICMAMMO 15:36 | PROVIDERS: ATTEND Family Medicine | DX: Z12.31 Encounter for screening mammogram for malignant neoplasm of breast (principal); Z80.3 Family history of malignant neoplasm of breast | CPT/HCPCS: 77063; 77067 ==

== ENCOUNTER 2025-07-20 15:52 | Outpatient (CLI) | payer BC | END 2025-07-20 15:53 | disposition home or self-care (01) | LOC: BICMAMMO 15:52 | PROVIDERS: ATTEND Family Medicine | DX: Z12.31 Encounter for screening mammogram for malignant neoplasm of breast (principal); Z80.3 Family history of malignant neoplasm of breast | CPT/HCPCS: 77063; 77067 ==